=== PATIENT | female | born 1985 | race Caucasian/White ===

== ENCOUNTER 2017-06-12 01:26 | Inpatient (IN) | payer OTHER ==
[2017-06-12] VITALS (29 sets, daily range): BP systolic 92–131; BP diastolic 52–80
[~2017-06-12] VITALS: Ht 160 cm; Wt 86.2 kg
[~2017-06-12 01:26] MED LIST: Motrin PO
[2017-06-12] MEDS ORDERED: TIROSINT75 MCG PO (01:45)
[2017-06-12 03:12] LABS: BASOPHIL (%) 0.3 % (0-1); EOSINOPHIL (%) 2.6 % (0-5); EOSINOPHIL COUNT 0.3 K/uL (0-0.3); HEMATOCRIT 33.6 % (36.0-46.0); HEMOGLOBIN 11.1 G/DL (11.9-15.5); IMMATURE GRANULOCYTE (%) 0.8 % (0.0-0.7); MCH 29.9 PG (29.0-34.0); MCV 90.6 FL (83-99); MONOCYTE COUNT 0.8 K/uL (0-0.8); NEUTROPHIL (%) 62.3 % (45-76); PLATELET COUNT 335 K/uL (156-360); RBC DIS.WIDTH-CV 13.3 % (11.8-14.6); RBC DIS.WIDTH-SD 43.7 % (39-53); RED BLOOD COUNT 3.71 M/uL (3.80-5.20); WHITE BLOOD COUNT 11.2 K/uL (4.1-10.2)
[2017-06-12 03:33] LABS: AMPHETAMINE NEGATIVE (500 ng/mL); BARBITURATES NEGATIVE (200 ng/mL); BENZODIAZEPINES NEGATIVE (150 ng/mL); BUPRENORPHINE NEGATIVE (10 ng/mL); COCAINE NEGATIVE (150 ng/mL); METHADONE NEGATIVE (200 ng/mL); METHAMPHETAMINE NEGATIVE (500 ng/mL); OPIATES (MORPHINE) NEGATIVE (100 ng/mL); OXYCODONE NEGATIVE (100 ng/mL); PHENCYCLIDINE NEGATIVE (25 ng/mL); PROPOXYPHENE NEGATIVE (300 ng/mL); THC CANNABINOIDS NEGATIVE (50 ng/mL); TRICYCLIC ANTIDEPRESSANTS NEGATIVE (300 ng/mL)
[2017-06-13 06:50] LABS: BASOPHIL (%) 0.2 % (0-1); EOSINOPHIL (%) 2.3 % (0-5); EOSINOPHIL COUNT 0.3 K/uL (0-0.3); HEMATOCRIT 29.6 % (36.0-46.0); HEMOGLOBIN 9.6 G/DL (11.9-15.5); IMMATURE GRANULOCYTE (%) 0.7 % (0.0-0.7); LYMPHOCYTE (%) 25.7 % (15-42); LYMPHOCYTE COUNT 3.4 K/uL (1.0-2.8); MCHC 32.4 G/DL (30.0-36.0); MCV 92.5 FL (83-99); MONOCYTE (%) 6.9 % (3-12); MONOCYTE COUNT 0.9 K/uL (0-0.8); NEUTROPHIL (%) 64.2 % (45-76); NEUTROPHIL COUNT 8.6 K/uL (1.8-6.4); PLATELET COUNT 314 K/uL (156-360); RBC DIS.WIDTH-CV 13.6 % (11.8-14.6); RBC DIS.WIDTH-SD 45.7 % (39-53); WHITE BLOOD COUNT 13.3 K/uL (4.1-10.2)
[2017-06-13 07:30] VITALS: BP 101/60
[2017-06-13] MEDS ORDERED: CHROMAGEN,1 CAPSULE PO (10:05)
[2017-06-13] MEDS ORDERED: ANALPRAM HC 2.5%4 GM PR (10:06)
[2017-06-13] MEDS ORDERED: IBUPROFEN800 MG PO (10:07)
[2017-06-13 15:10] VITALS: BP 101/67
[2017-06-13 19:27] VITALS: BP 109/77
[2017-06-13 23:27] VITALS: BP 107/58
== END 2017-06-14 12:25 | disposition home or self-care (01) | DRG 775 ==
LOC: LDRP-OP → 2WEST 01:27 → LDRP-OP 07-07 14:16
PROVIDERS: Advanced Practice Midwife
PROC: 00HU33Z Insertion of Infusion Device into Spinal Canal, Percutaneous Approach (ICD-10-PCS; principal; 2017-06-12)
PROC: 3E0R3BZ Introduction of Anesthetic Agent into Spinal Canal, Percutaneous Approach (ICD-10-PCS; principal; 2017-06-12)
PROC: 10E0XZZ Delivery of Products of Conception, External Approach (ICD-10-PCS; principal; 2017-06-12)
PROC: 0HQ9XZZ Repair Perineum Skin, External Approach (ICD-10-PCS; principal; 2017-06-12)
DX: O70.0 First degree perineal laceration during delivery (principal); O77.0 Labor and delivery complicated by meconium in amniotic fluid; O76 Abnormality in fetal heart rate and rhythm complicating labor and delivery; O99.02 Anemia complicating childbirth; D62 Acute posthemorrhagic anemia; O99.284 Endocrine, nutritional and metabolic diseases complicating childbirth; E06.3 Autoimmune thyroiditis; O99.334 Smoking (tobacco) complicating childbirth; F17.210 Nicotine dependence, cigarettes, uncomplicated; Z82.49 Family history of ischemic heart disease and other diseases of the circulatory system; Z83.3 Family history of diabetes mellitus; Z3A.40 40 weeks gestation of pregnancy; Z37.0 Single live birth
CPT/HCPCS: 85025; C1755; J3010; J7120

== ENCOUNTER 2017-10-02 05:22 | Day surgery (SDC) | payer OTHER ==
[~2017-10-02] VITALS: Ht 160 cm; Wt 69.9 kg
[~2017-10-02 05:22] MED LIST changes: +ANALPRAM HC 2.5%4 GM PR; +CHROMAGEN,1 CAPSULE PO; +IBUPROFEN800 MG PO; +SYNTHROID75 MCG PO
[2017-10-02 05:54] VITALS: BP 113/71
[2017-10-02 09:32] VITALS: BP 108/73
[2017-10-02 10:34] VITALS: BP 105/80
== END 2017-10-02 10:50 | disposition home or self-care (01) ==
LOC: SDC 05:22
PROC: 0U574ZZ Destruction of Bilateral Fallopian Tubes, Percutaneous Endoscopic Approach (ICD-10-PCS; principal; 2017-10-02)
DX: Z30.2 Encounter for sterilization (principal); E06.3 Autoimmune thyroiditis; F17.200 Nicotine dependence, unspecified, uncomplicated
CPT/HCPCS: 86850; 86900; 86901; J0330; J0690; J1100; J1885; J2250; J2405; J2710; J3010; S0020